=== PATIENT | male | born 1950 | race Caucasian/White ===

== ENCOUNTER → 2016-07-14 | Outpatient (CLI) | payer OTHER ==
[~2016-07-14] VITALS: Ht 182.9 cm; Wt 93.0 kg
[~2016-07-14] MED LIST: BENICAR HCT 401 EACH PO; GLUCOPHAGE1000 MG PO; GLUCOPHAGE500 MG PO; HYDROCODONE-AP1 EA11 PO; INVOKANA100 MG PO; LORAZEPAM 2MG TA2 M1 PO; OXYCONTIN30 MG PO; OXYCONTIN40 MG PO; PRAVACHOL40 MG PO; SYNTHROID125 MCG PO; VICOPROFEN 2001 EACH PO
--- NOTE | ~2016-07-14 | HPC ---
[facility] [place] [address] [place] [address] [place] [address] PAIN MANAGEMENT CONSULTATION Name: SHREE TORRES Room #: REG HALLEY Jyoti#: [id number] Admission: 07/14/16 Attend Phys: Hollis Atwood MD Discharge: Date of : 46 Report #: [id number] THIS REPORT FOR: //name// CC: Antione Atwood DATE OF SERVICE: 07/14/2016 Followup visit for chronic hip pain and management of high risk medication. The patient returns to pain clinic here for routine followup. He has been a patient of our clinic now since 1996, so it has been 20 years. We began providing with opioid analgesics to help with his intractable hip pain, which was difficult to diagnose. He signed opioid agreement with us for provision of these medications quite early. I reviewed the chart today and saw the initial consult for medication on 06/14/2000, so he has been on an opioid daily nearly 16 years. 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 He was able to manage his pain effectively with the use of medication. A diagnosis was essentially myofascial pain of chronic origin in the right hip, either a piriformis or gluteal. He has been on an opioid dose of OxyContin 40 mg b.i.d. and hydrocodone/ibuprofen 7.5/200 three times daily, nearly all of these years. Today, we reviewed the CDC guidelines and our practice efforts to taper patients down even though who have been stable over many years and even we feel they are using medication appropriately. Lowest effective dose seems to be the goal in mind for patient like. In the past, I have been reluctant to change the dose for stable patients, but with our new emphasis on trying to maintain lower doses across the practice, I am going to also ask the patient if he will see if he can reduce his longacting opioid. He was quite open to the suggestion and was willing to reduce his OxyContin dose from 40 to 30 twice a day and we will see how he does. Overall, he scores his pain with medications a 4 on a daily basis, worse with standing, walking and steps, riding a car. Pain has been constant throughout all these years, mostly in the right hip where he has localized tenderness just over the greater trochanter and posterior in the gluteal muscle group. PHYSICAL EXAMINATION: He is pleasant, alert and oriented without signs of overmedication, depression or anxiety. He has lost weight. His BMI is 27.8, 6 feet tall, 205 pounds. Moves quickly and easily from sitting to standing position, walks without antalgic features. Has tenderness in his right hip. [facility] [address] [place] [address] PAIN MANAGEMENT CONSULTATION Name: BRIANISAAC BHAGATBIB Saldaña Room #: REG Poppy Montes#: [id number] Admission: 07/14/16 Attend Phys: Hollis Atwood MD Discharge: Date of : 46 Report #: [id number] IMPRESSION: 1. Chronic right hip pain, probable myofascial. 2. Management of high risk medication. PLAN: 1. OxyContin 30 mg b.i.d. 2. Discontinue Vicoprofen. 3. Begin oxycodone/APAP 7.5/325. 4. Follow up in 3 months. By: [id number] Hollis Atwood MD /nt
[2016-07-14 14:04] VITALS: BP 111/86
== END | disposition home or self-care (01) ==
LOC: PAIN 06:53
DX: M25.551 Pain in right hip (principal); F41.9 Anxiety disorder, unspecified; F32.9 Major depressive disorder, single episode, unspecified

== ENCOUNTER → 2016-10-31 | Outpatient (CLI) | payer OTHER ==
[~2016-10-31] VITALS: Ht 185.4 cm; Wt 92.1 kg
[~2016-10-31] MED LIST changes: +CYMBALTA30 MG PO; +CYMBALTA60 MG PO; +OXYCODONE HCL E20 MG PO
[2016-10-31 11:03] VITALS: BP 132/76
== END | disposition home or self-care (01) ==
LOC: PAIN 06:42
DX: M25.551 Pain in right hip (principal); F11.20 Opioid dependence, uncomplicated

== ENCOUNTER → 2017-08-31 | Outpatient (CLI) | payer OTHER ==
[~2017-08-31] VITALS: Ht 185.4 cm; Wt 100.1 kg
[~2017-08-31] MED LIST changes: +JANUVIA100 MG PO
--- NOTE | ~2017-08-31 | HPC ---
[facility] [address] [place] [address] PAIN MANAGEMENT CONSULTATION Name: SHREE TORRES Room #: REG [facility] MHolliR.#: [id number] Admission: 08/31/17 Attend Phys: Hollis Atwood MD Discharge: Date of : 46 Report #: [id number] THIS REPORT FOR: //name// CC: Antione Atwood DATE OF SERVICE: 08/31/2017 Followup visit for chronic right hip pain. The patient returns to clinic today for renewal of medication, last seen on 03/06/2017. He has been doing well with no signs of medication side effect, misuse or abuse. He is on time for his medication. He is now living back and forth between his home in [place]. His daughter lives close by in [place] where he also is able to see his grandson! The pain still is increased when prolonged driving or walking up hills. He has localized and tender pain in the right buttock. PHYSICAL EXAMINATION: He is alert and oriented with good affect. Blood pressure is 139/83, heart rate 62. His BMI is 29.1. He looks healthy and happy. He has some pain in his right hip without radiation. Gait is normal without antalgic features. IMPRESSION: 1. Chronic intractable right hip pain. He has had a previous laminectomy. This may be radicular. It has responded well to medication over the course of many years. He has been seen in our clinic since 1998. 2. Management of high risk medications. Current morphine milligram equivalents is 75 MME. Followup visit is scheduled in our pain clinic in 3 months. By: [id number] Hollis Atwood MD /nt
[2017-08-31 13:54] VITALS: BP 139/83
== END ==
LOC: PAIN 05:52
DX: M25.551 Pain in right hip (principal); G89.29 Other chronic pain

== ENCOUNTER → 2018-03-29 | Outpatient (CLI) | payer OTHER ==
[~2018-03-29] VITALS: Ht 185.4 cm; Wt 100.2 kg
--- NOTE | ~2018-03-29 | HPC ---
[facility] [address] [place] [address] PAIN MANAGEMENT CONSULTATION Name: SHREE TORRES Room #: REG CL MAbdoulaye.#: [id number] Admission: 03/29/18 Attend Phys: Anni Servin Discharge: Date of : 46 Report #: [id number] THIS REPORT FOR: //name// CC: Anni Talbot [facility] DATE OF SERVICE: 03/29/2018 CHIEF COMPLAINT: For chronic intractable hip pain. HISTORY OF PRESENT ILLNESS: The patient returns to the pain clinic today for refill of his medications. He comes to see us every 3 months for a refill. He has been doing well on his current pain regimen, he states his pain score is 3-4 of his right hip pain. He tells me that it is worse when he is standing, walking, driving a car, walking on uneven ground, but the medication has been helpful, as well as lying down. He does have an occasional ache and dull pain that he complains of in that hip. He tells me that he still has been doing well, even since the decrease of Dr. Atwood did earlier this year of his OxyContin. He tells me that he has been traveling some, but otherwise he has been very stable in all of his medications. ALLERGIES: DEMEROL. MEDICATIONS: List of current medications, OxyContin 20 mg twice a day, hydrocodone 7.5/325 up to 2 times a day, Januvia 100 mg daily, Cymbalta 60 mg daily, Synthroid 125 mcg daily, Glucophage 1000 mg twice a day and lorazepam 2 mg 3 times a day as needed p.r.n. PATIENT'S PQRS TODAY: He has a history of osteoarthritis in his hips. He denies rheumatoid arthritis. Height is 6 feet 1 inch, weight is 221. BMI is 29.2. Vital signs 139/86, pulse is 76, respirations 14, oxygen sat is 98%. Pain score is 3-4. The patient denies dizziness. Does not need help walking or standing and has not fallen in the last 3 months. The patient denies any blood thinners or any antihypertensives. He has been on opioid therapy greater than 6 weeks; therefore, an opioid signed contract is on the chart. His opioid risk assessment tool is low and his functional assessment is 32/70. The patient denies recreational drug use. Does not smoke and does not drink alcohol. Prescription monitoring systems were checked for [place] in [place]. The patient is filling appropriate from Dr. Atwood at [facility], no aberrant refills and the patient tells me that he does safeguard his medications. PHYSICAL EXAMINATION: GENERAL: This is a very pleasant, alert, oriented gentleman who appears his stated age. He is alert and oriented x 3. His affect is appropriate. [facility] [address] [place] [address] PAIN MANAGEMENT CONSULTATION Name: SHREE TORRES Room #: REG HALLEY Montes#: [id number] Admission: 03/29/18 Attend Phys: Anni Servin Discharge: Date of : 46 Report #: [id number] HEENT: Normocephalic, atraumatic. Extraocular eye muscles are intact. Mucous membranes are moist. Hearing is adequate. NECK: No JVD or adenopathy. Good range of motion. MUSCULOSKELETAL: Lower extremity strength judged to be 5/5 in all major muscle groups. Does complain of some right hip tenderness. No antalgic features to his gait. His pain does not radiate down his leg, it stays within the hip area. IMPRESSION: 1. Chronic intractable right hip pain, post-laminectomy. 2. Management of high risk medications, followed an opioid agreement. PLAN: 1. We reviewed the patient's medications today and I have discussed his treatment plan. The patient tells me that he has been doing well on his current medications and wishes to continue at the current rate. Scripts were given for OxyContin 20 mg one p.o. b.i.d., #60 for today, 4-week and 8-week release. Second medication of [place] 7.5/325, #60 for today, 4-week and 8-week release. 2. The patient will be seen in followup in 3 months' time by myself, then he may see Dr. Hollis Atwood for an appointment. He may call sooner if he feels like he needs any injections or something else arises with his medications. The patient seen under collaboration today with Dr. Олег Kruse. <ELECTRONICALLY SIGNED> By: Anni Servin 04/02/18 1457 [id number] Anni Servin /tank
[2018-03-29 13:12] VITALS: BP 139/86
== END ==
LOC: PAIN 09:22
DX: M25.551 Pain in right hip (principal); G89.29 Other chronic pain; M19.90 Unspecified osteoarthritis, unspecified site; Z79.899 Other long term (current) drug therapy

== ENCOUNTER → 2018-11-08 | Outpatient (CLI) | payer OTHER ==
[~2018-11-08] VITALS: Ht 185.4 cm; Wt 100.0 kg
[2018-11-08 14:33] VITALS: BP 127/84
--- NOTE | 2018-11-08 14:44 | NUR ---
Pain Clinic Assessment: 1. History of Osteoarthritis: RT HIP History of Rheumatoid Arthritis: Not Applicable 2. Height: 6 ft. 1 in. 185.4 cm. Weight: 220.4 lb. oz. 99.973 kg. Patient's BMI: 29.1 3. Vital Signs: BP: 127/84 Pulse: 70 Resp: 16 Temp: 02 Sat: 96 ECG Mon: 4. Pain Intensity: 3 5. Fall Risk: Dizziness: N Needs help standing or walking: N Fallen in the last 3 months: N Fall risk comments: 6. Patient on Blood Thinner: None 7. History of Hypertension: N 8. Opioid Therapy greater than 6 weeks: Y Opiate Contract Signed: 02/05/14 9. Risk Assessment Tool Provided: Opioid Risk Tool 10. Functional Assessment Tool: 11. Recreational Drug Use: Never Drug Type: Tobacco Use: Never Smoker Tobacco Type: Amount or Packs/day: How Many Years: Alcohol Use: No Frequency: Quant:
--- NOTE | 2018-11-09 09:08 | HPC ---
[facility] [address] [place] [address] [place] [address] PAIN MANAGEMENT CONSULTATION Name: SHREE TORRES [facility] #: [facility] [id number] Admission: 11/08/18 ������������������ Attend Phys: Anni Servin Discharge: ������������������ Date of : 46 Report #: [id number] THIS REPORT FOR: //name// CC: Anni Atwood DATE OF SERVICE: 11/08/2018 CHIEF COMPLAINT: Chronic intractable hip pain. HISTORY OF PRESENT ILLNESS: This is a very pleasant 68-year-old gentleman who returns to the pain clinic today for refill of his medications that he uses to treat his ongoing right hip pain. He tells me that his pain score is 3/10 today, is worse when he is driving, walking up hills or standing. The medication is very helpful as well as lying down. He denies any problems with constipation or daytime sleepiness from this medication. He tells me he is getting ready to go to his home in [place] for several weeks and needed his refill before he travels. ALLERGIES: DEMEROL. CURRENT LIST OF MEDICATIONS: OxyContin 20 mg b.i.d., hydrocodone 7.5/325 b.i.d., Januvia, Cymbalta, Synthroid, Glucophage, and lorazepam. PQRS: 1. The patient has osteoarthritis in his right hip. Denies any rheumatoid arthritis. 2. Height is 6 feet 1 inch, weight is 220, BMI is 29. 3. Vital signs: Blood signs 127/84, pulse is 70, respirations 16, oxygen sat is 96. 4. Pain score is 3/10. 5. Denies dizziness. Does not need help walking or standing, has not fallen in the last 3 months. 6. The patient is not on any blood thinners, does not take medicine for hypertension. 7. Opioid therapy is greater than 6 weeks; therefore, an opioid signed contract is on the chart. Risk assessment is low. Functional assessment is low as well. Recreational drug use, he denies. He is not a smoker and does not drink alcohol. According to the prescription monitoring system, the patient is filling appropriately for his medications and is due for those today. PHYSICAL EXAMINATION: GENERAL: This is a very pleasant and alert and orientated 68-year-old. He appears his stated age. His affect is appropriate. He is a good historian. He places his current pain score today at 3/10. [address] [address] PAIN MANAGEMENT CONSULTATION Name: SHREE TORRES Room #: REG CLI [facility]#: [id number] Admission: 11/08/18 ������������������ Attend Phys: Anni Servin Discharge: ������������������ Date of : 46 Report #: [id number] HEENT: Normocephalic, atraumatic. Extraocular eye muscles are intact. Mucous membranes are moist. NECK: Without adenopathy or JVD. MUSCULOSKELETAL: Complains of tenderness over his right hip with no radiation. He walks with a normal gait. His lower extremity strength judged to be 5/5 in all major muscle groups and muscle tone is equal and symmetrical. IMPRESSION: 1. Chronic intractable right hip pain. 2. Post-laminectomy syndrome. 3. Management of high risk medications under terms of written opioid agreement. We reviewed the fact that opiate medications are being used to provide analgesia adequate to support activities of daily living, not attempting to achieve a specific pain score on the 0-10 Visual Analog Scale. The current opiate medications are providing sufficient analgesia to allow the patient to participate in activities of daily living. The patient is not exhibiting any aberrant behavior suggestive of drug diversion. The patient is not having any adverse reactions to medications. The patient is not suffering from daytime somnolence or mental acuity changes. The patient is managing opiate-induced constipation with appropriate [id number] agents and dietary considerations. The patient was counseled on concern for caution with operating a motor vehicle while using opiate medications. A physical exam was performed and the patient's functional status was evaluated. All patients with back pain were advised against the bed rest greater than 4 days and were advised to return to normal activities. Pain score assessment was noted and the treatment plan was reviewed with the patient. All current medications, both prescribed and OTC were reviewed and reconciled on the electronic medical record. Tobacco screening was accomplished and smoking cessation was advised when indicated. BMI was noted and diet/exercise modification was recommended for all patients following outside normal parameters. I reviewed with the patient today their responsibilities to safeguard prescription medications, reviewed their responsibility to utilize medications only as prescribed by the physician. They are to seek and receive pain medications only from 1 physician group ( [facility]). They are to use 1 pharmacy and keep the clinic informed if they change pharmacies. Their responsibilities include making followup visits in a timely fashion and to avoid abrupt discontinuation of medication usage. Their responsibilities further include bringing their medications (bottles from the pharmacy with residual pills) to the visit for possible confirmation of pill counts and the patient understands it is their responsibility to submit to random drug screens to ensure both that the medications prescribed are present, and that no other controlled substances are present. All prescriptions provided today were [facility] [address] [place] [address] PAIN MANAGEMENT CONSULTATION Name: SHREE TORRES Room #: REG HALLEY Montes#: [id number] Admission: 11/08/18 ������������������ Attend Phys: Anni Servin Discharge: ������������������ Date of : 46 Report #: [id number] generated electronically. PLAN: 1. We discussed treatment options with the patient today. The patient's pain is well controlled with his hydrocodone and OxyContin. Scripts given today for 20 mg OxyContin #60 for release today, 4 and 8 week and hydrocodone 7.5/325, #60 for 3 months as well. According to the CDC guidelines, this places the patient at 75 morphine mEq per day. 2. The patient is encouraged to safeguard his meds when he travels and keep them with him at all times. He verbalizes understanding. 3. Dr. Hollis Atwood did come and see the patient and collaborated care today. The patient will call for an appointment. ��������������������������������������������� <ELECTRONICALLY SIGNED> ���������������������������������������� By: Anni Servin ��������������������������������������������� 11/09/18 0908 [id number] Anni Servin /tank
== END ==
LOC: PAIN 13:59
DX: M25.551 Pain in right hip (principal); G89.29 Other chronic pain; M96.1 Postlaminectomy syndrome, not elsewhere classified; Z79.891 Long term (current) use of opiate analgesic

== ENCOUNTER → 2019-03-04 | Outpatient (CLI) | payer OTHER ==
[~2019-03-04] VITALS: Ht 185.4 cm; Wt 100.2 kg
[2019-03-04 14:15] VITALS: BP 155/80
--- NOTE | 2019-03-04 14:41 | NUR ---
Pain Clinic Assessment: 1. History of Osteoarthritis: RT HIP History of Rheumatoid Arthritis: Not Applicable 2. Height: 6 ft. 1 in. 185.4 cm. Weight: 221.0 lb. oz. 100.245 kg. Patient's BMI: 29.2 3. Vital Signs: BP: 155/80 Pulse: 62 Resp: 14 Temp: 02 Sat: 98 ECG Mon: 4. Pain Intensity: 3 5. Fall Risk: Dizziness: N Needs help standing or walking: N Fallen in the last 3 months: N Fall risk comments: 6. Patient on Blood Thinner: None 7. History of Hypertension: N 8. Opioid Therapy greater than 6 weeks: Y Opiate Contract Signed: 02/05/14 9. Risk Assessment Tool Provided: 4-MOD RISK 10. Functional Assessment Tool: 11. Recreational Drug Use: Never Drug Type: Tobacco Use: Never Smoker Tobacco Type: Amount or Packs/day: How Many Years: Alcohol Use: No Frequency: Quant:
--- NOTE | 2019-03-05 10:35 | HPC ---
[facility] [address] [place] [address] PAIN MANAGEMENT CONSULTATION Name: SHREE TORRES Room #: REG [facility] Jyoti#: [id number] Admission: 03/04/19 Attend Phys: Anni Servin Discharge: Date of : 46 Report #: [id number] THIS REPORT FOR: //name// CC: Anni Talbot [facility] DATE OF SERVICE: 03/04/2019 CHIEF COMPLAINT: Chronic intractable hip pain. HISTORY OF PRESENT ILLNESS: This is a very pleasant 68-year-old gentleman who returns to the pain clinic today for his ongoing right hip pain. He believes it is piriformis in nature. He is rating a pain score of 3/10 today as a dull aching pain, worse when he is very active and walking or driving his car. He feels that his medication as well as lying down are quite beneficial. He is here actually 4 months since his last appointment. He was able to make his medicines last that long, though he reports he has not been aware that it had been 4 months since his last visit. He feels that some days he must do better than others, forgetting to take his pills when he is more active and not needing them. He denies any problems with constipation or daytime sleepiness from his medications. He does safeguard those especially when he is away from home and traveling. Today, he would like refills of his OxyContin and hydrocodone. ALLERGIES: DEMEROL. CURRENT LIST OF MEDICATIONS: OxyContin 20 mg b.i.d., hydrocodone 7.5/325 b.i.d. p.r.n., Januvia 100 mg daily, Cymbalta 60 mg daily, Synthroid 125 mcg daily, Glucophage 1000 mg b.i.d., and lorazepam p.r.n. PQRS: 1. The patient has osteoarthritis in his right hip. He denies any rheumatoid arthritis. 2. Height is 6 feet 1 inch, weight is 221. BMI is 29. 3. Vital signs 155/80, pulse is 62, respirations 14, oxygen sat is 98. 4. Pain score is 3. 5. Denies dizziness, does not need help walking or standing, has not fallen in the last 3 months. 6. The patient is not on blood thinner or hypertension medicines. 7. Opioid therapy is greater than 6 weeks; therefore, an opioid signed contract is on the chart. Risk assessment tool is moderate. Functional assessment is 23/70. 8. Recreational drug use, he denies. He is not a smoker and does not drink alcohol. According to the prescription monitoring system, the patient is filling appropriately for his medications, actually filling slightly longer than 30 [place] [address] PAIN MANAGEMENT CONSULTATION Name: SHREE TORRES Room #: REG HALLEY Montes#: [id number] Admission: 03/04/19 Attend Phys: Anni Servin Discharge: Date of : 46 Report #: [id number] and in between fills, he tells me he safeguards his medications at all times. PHYSICAL EXAMINATION: GENERAL: This is a pleasant and alert 68-year-old gentleman who appears his stated age, placing his current pain score at 3/10 today. He is a good historian. HEENT: Normocephalic, atraumatic. Extraocular eye muscles are intact. NECK: Without adenopathy or JVD. MUSCULOSKELETAL: He walks with a normal gait. He has tenderness over his right hip with no radiculopathy. Strength in his lower extremities judged to be 5/5 in all major muscle groups. IMPRESSION: 1. Chronic intractable right hip pain. 2. Post-laminectomy syndrome. 3. Management of high risk medications under terms of written opioid agreement. PLAN: 1. We discussed treatment options with the patient today. The patient feels he is doing quite well with his current medication regimen, requiring some days less than the prescribed amount, doing quite well, is keeping very active and traveling, busy at home. Scripts given today for his hydrocodone 7.5/325, #60 and OxyContin 20 mg, #60. Those medicines were released today, 4-week and 8-week. MRI electronically sent to [facility]. 2. According to the prescription monitoring system, the patient's morphine milliequivalent is 75 morphine milliequivalents per day. 3. The patient will return in 3-4 months as needed for medication refills. He will continue to safeguard these medications. The patient is seen in collaboration with Dr. Hollis Atwood today. <ELECTRONICALLY SIGNED> By: Anni Servin 03/05/19 1035 [id number] Anni Servin /tank
== END ==
LOC: PAIN 07:02
DX: M25.551 Pain in right hip (principal); G89.4 Chronic pain syndrome; M96.1 Postlaminectomy syndrome, not elsewhere classified; Z79.899 Other long term (current) drug therapy; Z79.891 Long term (current) use of opiate analgesic

== ENCOUNTER → 2019-06-06 | Outpatient (CLI) | payer OTHER ==
[~2019-06-06] VITALS: Ht 185.4 cm; Wt 102.3 kg
[2019-06-06 14:14] VITALS: BP 127/88
--- NOTE | 2019-06-06 14:18 | NUR ---
Pain Clinic Assessment: 1. History of Osteoarthritis: RT HIP History of Rheumatoid Arthritis: Not Applicable 2. Height: 6 ft. 1 in. 185.4 cm. Weight: 225.6 lb. oz. 102.332 kg. Patient's BMI: 29.8 3. Vital Signs: BP: 127/88 Pulse: 75 Resp: 16 Temp: 02 Sat: 98 ECG Mon: 4. Pain Intensity: 3-4 5. Fall Risk: Dizziness: N Needs help standing or walking: N Fallen in the last 3 months: N Fall risk comments: 6. Patient on Blood Thinner: None 7. History of Hypertension: N 8. Opioid Therapy greater than 6 weeks: Y Opiate Contract Signed: 02/05/14 9. Risk Assessment Tool Provided: 4-MOD RISK 10. Functional Assessment Tool: 11. Recreational Drug Use: Never Drug Type: Tobacco Use: Never Smoker Tobacco Type: Amount or Packs/day: How Many Years: Alcohol Use: No Frequency: Quant:
--- NOTE | 2019-06-11 08:58 | HPC ---
[facility] [place] [address] PAIN MANAGEMENT CONSULTATION Name: SHREE TORRES Room #: REG [facility] M.R.#: [id number] Admission: 06/06/19 Attend Phys: Anni Servin Discharge: Date of : 46 Report #: [id number] THIS REPORT FOR: cc: Antione Gibbs MD,Antione Servin,Anni WADSWORTH ~ THIS REPORT FOR: //name// CC: Anni Gibbs DATE OF SERVICE: 06/06/2019 CHIEF COMPLAINT: Chronic intractable hip pain. 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 He reports it is a constant, aching, dull pain of 3/10 today, it is worse with prolonged standing and walking, especially up hills and driving a car. He feels the medications are very beneficial. He reports no side effects of constipation or daytime sleepiness. Today, he would like refills of those medications. He reports he recently returned from [place] for a conference and he was able to be as active as he would like with limited pain due to using his medications. ALLERGIES: DEMEROL. CURRENT LIST OF MEDICATIONS: OxyContin 20 mg b.i.d., hydrocodone 7.5/325 p.r.n., Januvia, Cymbalta, Synthroid, Glucophage, and lorazepam. PQRS: 1. He has osteoarthritis in his right hip. Denies any rheumatoid arthritis. 2. Height is 6 feet 1 inch, weight is 225. BMI is 29. 3. Vital signs 127/88, pulse is 75, respirations 16, oxygen sat is 98. 4. Pain score is 3-4. 5. Denies dizziness, does not need help walking or standing, has not fallen in the last 3 months. 6. The patient is not on any blood thinners or medicine for hypertension. Opioid therapy is greater than 6 weeks; therefore, an opioid signed contract is on the chart. Risk assessment is moderate. Functional assessment is 23/70. 7. Recreational drug use, he denies. He is not a smoker and does not drink alcohol. According to the prescription monitoring system, the patient is filling appropriately for his medication. He is due to fill those today in a timely fashion. There is a recent drug screen on the chart. [place] [address] PAIN MANAGEMENT CONSULTATION Name: SHREE TORRES Room #: REG [facility] Montes#: [id number] Admission: 06/06/19 Attend Phys: Anni Servin Discharge: Date of : 46 Report #: [id number] drug screen on him at his next visit. His morphine mEq according to the CDC guidelines are 70 per day; therefore, he is seen every 2 months. PHYSICAL EXAMINATION: GENERAL: This is alert and orientated 68-year-old gentleman who appears his stated age, placing his current pain score at 3/10 today. HEENT: Normocephalic, atraumatic. Mucous membranes are moist. NECK: He walks with a normal gait. MUSCULOSKELETAL: He has tenderness in his right hip with no radicular symptoms. His lower extremity strength judged to be 5/5 in all major muscle groups. He moves from sitting to standing easily with no difficulty. IMPRESSION: 1. Chronic intractable right hip pain. 2. Post-laminectomy syndrome. 3. Management of high risk medications under terms of written opioid agreement. We reviewed the fact that opiate medications are being used to provide analgesia adequate to support activities of daily living, not attempting to achieve a specific pain score on the 0-10 Visual Analog Scale. The current opiate medications are providing sufficient analgesia to allow the patient to participate in activities of daily living. The patient is not exhibiting any aberrant behavior suggestive of drug diversion. The patient is not having any adverse reactions to medications. The patient is not suffering from daytime somnolence or mental acuity changes. The patient is managing opiate-induced constipation with appropriate ndjo-yev-fmkglxk agents and dietary considerations. The patient was counseled on concern for caution with operating a motor vehicle while using opiate medications. PLAN: We discussed treatment options with the patient today. He is doing quite well on his current medication regimen, having sufficient analgesic response with being able to be as active as he would like with no side effects per his report. We will electronically send his OxyContin 20 mg b.i.d., #60 for today at 4-week and 8-week release as well as his hydrocodone 7.5/325 for today for an 8-week release. These will be sent electronically by Dr. Hollis Atwood who collaborated care with me today. <ELECTRONICALLY SIGNED> By: Anni Servin 06/11/19 [id number] Anni Servin /nt
== END ==
LOC: PAIN 07:52
DX: Z76.0 Encounter for issue of repeat prescription (principal); M16.11 Unilateral primary osteoarthritis, right hip; G89.4 Chronic pain syndrome; M96.1 Postlaminectomy syndrome, not elsewhere classified; Z79.891 Long term (current) use of opiate analgesic; Z79.899 Other long term (current) drug therapy

== ENCOUNTER → 2019-09-19 | Outpatient (CLI) | payer OTHER ==
[~2019-09-19] VITALS: Ht 185.4 cm; Wt 102.4 kg
--- NOTE | ~2019-09-19 | HPC ---
[facility] [address] [place] [address] PAIN MANAGEMENT CONSULTATION Name: SHREE PABLO Room #: REG [facility] M.R.#: [id number] Admission: 09/19/19 Attend Phys: Hollis Atwood MD Discharge: Date of : 46 Report #: [id number] THIS REPORT FOR: cc: Antione Gibbs MD, Bruce H. MD Morgan,Hollis Alexander MD ~ CC: Antione Atwood DATE OF SERVICE: 09/19/2019 Followup visit for management of opioid medications under terms of written opioid agreement. 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 I have provided medications for him for over 10 years. He has been on opioid medications for roughly 20 years. He was once on much higher dose and has reduced his dose and morphine milligram equivalency to around 80. He takes long-acting oxycodone 20 mg morning and evening and has hydrocodone 10/325, which he uses for breakthrough pain, both before and after particularly painful activities. We had a lengthy discussion today about ____ of opioid use for chronic intractable pain. I shared my thoughts, our process, the CDC guidelines and also showed him his [facility] prescription drug monitoring program information. It did point out the use of relative high dose of lorazepam prescribed by Dr. Gibbs. We then discussed at some length the potential risks of benzodiazepine and opioids and their interaction. As Dr. Pablo has pointed out he has taken this combination for many years without harm and as long as he safeguards his medications, takes them as he is currently using them the likelihood of harm is small due to long-term tolerance. We have talked at times about reducing his dose further and I have encouraged him to consider this. For the moment; however, his pain is well controlled. His pain scores are 3-4 and we will stick with the status quo. I did point out that changes may be coming that are outside of our control, which may be either regulatory, insurance or supply driven. He will also at some point in time need another physician to prescribe his medication due to my age and possibility of retiring from practice in the next few years. He reports he is doing well as pain medication works very effectively for him. It improves his daily pain control and function. He is able to do more with less discomfort. He has remained active with exercise, walks when he can. He safeguards his medications carefully and denies any side effects from medications or the combination of benzodiazepine and opioid. [address] [address] PAIN MANAGEMENT CONSULTATION Name: SHREE PABLO ANTIONE Room #: REG [facility].#: [id number] Admission: 09/19/19 Attend Phys: Hollis Atwood MD Discharge: Date of : 46 Report #: [id number] PQRS: Positive for osteoarthritis in the right hip. The patient's BMI is 29.8. Blood pressure 135/106, heart rate 74, respirations 18, O2 sat 99. He will follow with Dr. Gibbs. He has not fallen in the last 3 months. He is on no blood thinning medications. He is not being treated for hypertension, but should see Dr. Gibbs to follow up on his elevation of diastolic blood pressure today. Opioid agreement has been signed on several occasions, most recently about 4 or 5 years ago and we discussed the terms of that agreement. He is at moderate risk for addiction by the opioid risk tool. Functional assessment score is 31, suggesting impact on his day-to-day activities by chronic pain, but pretty good, decent management. Denies use of tobacco or alcohol. IMPRESSION: 1. Chronic intractable right hip pain, osteoarthritis. 2. Post-laminectomy syndrome. 3. Management of high risk medications under terms of an opioid agreement. Medications were renewed today electronically. His MME is around 80. We talked about carefully safeguarding medications and I will see him back in the pain clinic in 3 months. By: [id number] Hollis Atwood MD /nt
[2019-09-19 09:26] VITALS: BP 135/106
--- NOTE | 2019-09-19 09:34 | NUR ---
Pain Clinic Assessment: 1. History of Osteoarthritis: RT HIP History of Rheumatoid Arthritis: Not Applicable 2. Height: 6 ft. 1 in. 185.4 cm. Weight: 225.8 lb. oz. 102.422 kg. Patient's BMI: 29.8 3. Vital Signs: BP: 135/106 Pulse: 74 Resp: 18 Temp: 02 Sat: 99 ECG Mon: 4. Pain Intensity: 3-4 5. Fall Risk: Dizziness: N Needs help standing or walking: N Fallen in the last 3 months: N Fall risk comments: 6. Patient on Blood Thinner: None 7. History of Hypertension: N 8. Opioid Therapy greater than 6 weeks: Y Opiate Contract Signed: 02/05/14 9. Risk Assessment Tool Provided: 4-MOD RISK 10. Functional Assessment Tool: 11. Recreational Drug Use: Never Drug Type: Tobacco Use: Never Smoker Tobacco Type: Amount or Packs/day: How Many Years: Alcohol Use: No Frequency: Quant:
== END ==
LOC: PAIN 06:47
DX: M16.11 Unilateral primary osteoarthritis, right hip (principal); G89.29 Other chronic pain; M96.1 Postlaminectomy syndrome, not elsewhere classified; F11.20 Opioid dependence, uncomplicated

== ENCOUNTER → 2020-01-06 | Outpatient (CLI) | payer OTHER ==
[~2020-01-06] VITALS: Ht 185.4 cm; Wt 101.2 kg
[2020-01-06 09:28] VITALS: BP 150/88
--- NOTE | 2020-01-06 09:39 | NUR ---
Pain Clinic Assessment: 1. History of Osteoarthritis: RT HIP History of Rheumatoid Arthritis: Not Applicable 2. Height: 6 ft. 1 in. 185.4 cm. Weight: 223.0 lb. oz. 101.152 kg. Patient's BMI: 29.4 3. Vital Signs: BP: 150/88 Pulse: 71 Resp: 16 Temp: 02 Sat: 100 ECG Mon: 4. Pain Intensity: 3 5. Fall Risk: Dizziness: N Needs help standing or walking: N Fallen in the last 3 months: N Fall risk comments: 6. Patient on Blood Thinner: None 7. History of Hypertension: N 8. Opioid Therapy greater than 6 weeks: Y Opiate Contract Signed: 02/05/14 9. Risk Assessment Tool Provided: 4-MOD RISK 10. Functional Assessment Tool: 11. Recreational Drug Use: Never Drug Type: Tobacco Use: Never Smoker Tobacco Type: Amount or Packs/day: How Many Years: Alcohol Use: No Frequency: Quant:
--- NOTE | 2020-01-07 13:00 | HPC ---
[facility] [address] [place] [address] PAIN MANAGEMENT CONSULTATION Name: SHREE TORRES Room #: REG [facility] M..#: [id number] Admission: 01/06/20 Attend Phys: Anni Servin Discharge: Date of : 46 Report #: [id number] THIS REPORT FOR: cc: Antione Gibbs MD, Bruce H. MD Hocker, Amanda CNS ~ CC: Hollis Gibbs DATE OF SERVICE: 01/06/2020 CHIEF COMPLAINT: Chronic intractable hip pain. HISTORY OF PRESENT ILLNESS: This is a 69-year-old gentleman who returns to the pain clinic today for refill of his opioid medications. He feels that they are very beneficial in controlling his pain. He has been on a stable dose for many years. He does report that last week with the weather changes, he did have increased right hip pain, but it has subsided now that the weather is not as rainy. Patient states it is a dull aching, constant pain of 3/10 today. It is worse with standing, walking and steps. He feels as I can say, the medication and lying down are beneficial. The patient does report that he was very active when he was in [place] with grandchildren for several weeks. He found that during that time, he did have to rest periodically throughout the day. He believes that was from so many stairs and so much more activity than he is used to on a normal day. He denies any feelings of overmedication or constipation as a result of his medicines. ALLERGIES: DEMEROL. CURRENT LIST OF MEDICATIONS: OxyContin 20 mg b.i.d., hydrocodone 7.5/325 b.i.d., Januvia, Cymbalta, Synthroid, Glucophage, and lorazepam. PQRS: 1. He has osteoarthritic changes in his right hip. Denies any rheumatoid arthritis. 2. Height is 6 feet 1 inch, weight is 223, BMI is 29. 3. Vital signs; blood pressure 150/88, pulse is 71, respirations 16, oxygen sat is 100. 4. Pain score is 3/10. 5. Fall risk. Denies dizziness, does not need help walking or standing, has not fallen in the last 3 months. The patient is not on any blood thinners or medicine for hypertension. 6. His opioid therapy is greater than 6 weeks; therefore, an opioid signed contract is on the chart. Risk assessment is moderate. Functional assessment is 31/70. 3. Recreational drug use, he denies. He is not a smoker. Does not drink [address] [address] PAIN MANAGEMENT CONSULTATION Name: SHREE TORRES Room #: REG [facility] Jyoti#: [id number] Admission: 01/06/20 Attend Phys: Anni Servin Discharge: Date of : 46 Report #: [id number] alcohol. According to the prescription monitoring system, the patient is filling appropriately for his medication. His morphine milliequivalent according to the CDC guidelines is 75. PHYSICAL EXAMINATION: GENERAL: This is alert and orientated 69-year-old who appears his stated age, placing his current pain score at 3/10 today. HEENT: Normocephalic, atraumatic. Extraocular eye muscles are intact. He is wearing a mask. MUSCULOSKELETAL: He has pain in his right hip that is tender with no radicular symptoms. His lower extremity strength judged to be 5/5 in all major muscle groups. He does move from sitting to standing without any difficulty and has a slightly mildly antalgic gait. IMPRESSION: 1. Chronic intractable right hip pain. 2. Post-laminectomy syndrome. 3. Management of high risk medications under terms of written opioid agreement. We reviewed the fact that opiate medications are being used to provide analgesia adequate to support activities of daily living, not attempting to achieve a specific pain score on the 0-10 Visual Analog Scale. The current opiate medications are providing sufficient analgesia to allow the patient to participate in activities of daily living. The patient is not exhibiting any aberrant behavior suggestive of drug diversion. The patient is not having any adverse reactions to medications. The patient is not suffering from daytime somnolence or mental acuity changes. The patient is managing opiate-induced constipation with appropriate bxbd-hlh-itcehnf agents and dietary considerations. The patient was counseled on concern for caution with operating a motor vehicle while using opiate medications. PLAN: 1. We discussed treatment options with the patient today. The patient finds his medication very beneficial in controlling his pain. We will have Dr. Hollis Atwood send his medications electronically to the pharmacy for OxyContin 20 mg b.i.d., #60 as well as hydrocodone 7.5. 2. The patient denies any problems with constipation as a result of his medications. 3. The patient is seen today in collaboration with Dr. Hollis Atwood. <ELECTRONICALLY SIGNED> By: Anni Servin 01/07/20 1300 [id number] Anni Servin /nt
== END ==
LOC: PAIN 06:55
PROVIDERS: ATTEND Clinical Nurse Specialist Adult Health
DX: M25.551 Pain in right hip (principal); G89.29 Other chronic pain; F11.20 Opioid dependence, uncomplicated; M96.1 Postlaminectomy syndrome, not elsewhere classified; Z88.8 Allergy status to other drugs, medicaments and biological substances; Z79.899 Other long term (current) drug therapy

== ENCOUNTER → 2020-04-02 | Outpatient (CLI) | payer OTHER ==
[~2020-04-02] VITALS: Ht 182.9 cm; Wt 105.1 kg
[2020-04-02 13:07] VITALS: BP 139/93
--- NOTE | 2020-04-02 13:20 | NUR ---
Pain Clinic Assessment: 1. History of Osteoarthritis: RT HIP History of Rheumatoid Arthritis: Not Applicable 2. Height: 6 ft. 0 in. 182.9 cm. Weight: 231.8 lb. oz. 105.144 kg. Patient's BMI: 31.4 3. Vital Signs: BP: 139/93 Pulse: 87 Resp: 16 Temp: 02 Sat: 100 ECG Mon: 4. Pain Intensity: 3 5. Fall Risk: Dizziness: N Needs help standing or walking: N Fallen in the last 3 months: N Fall risk comments: 6. Patient on Blood Thinner: None 7. History of Hypertension: N 8. Opioid Therapy greater than 6 weeks: Y Opiate Contract Signed: 02/05/14 9. Risk Assessment Tool Provided: 4-MOD RISK 10. Functional Assessment Tool: 11. Recreational Drug Use: Never Drug Type: Tobacco Use: Never Smoker Tobacco Type: Amount or Packs/day: How Many Years: Alcohol Use: No Frequency: Quant:
--- NOTE | 2020-04-03 10:36 | HPC ---
[facility] [address] [place] [address] PAIN MANAGEMENT CONSULTATION Name: SHREE TORRES Room #: REG [facility].#: [id number] Admission: 04/02/20 Attend Phys: Anni Servin Discharge: Date of : 46 Report #: [id number] THIS REPORT FOR: cc: Antione Gibbs MD, Bruce H. MD Hocker,Anni WADSWORTH ~ DATE OF SERVICE: 04/02/2020 CHIEF COMPLAINT: Chronic intractable hip pain. HISTORY OF PRESENT ILLNESS: This is a very pleasant 69-year-old gentleman who returns for medication renewal today in the pain clinic. He feels that his pain medication is beneficial in controlling his ongoing hip pain. Today, he is reporting this pain score of 3/10, stating it is a constant, aching, dull pain that is exacerbated by standing, walking or driving a car. He believes the medication as well as lying down have been beneficial. He tries to stay as active as possible and believe this is helpful as well. He denies constipation or daytime somnolence as a result of any of his medications. ALLERGIES: DEMEROL. CURRENT LIST OF MEDICATIONS: OxyContin 20 mg b.i.d., hydrocodone 7.5/325 b.i.d., Januvia, Cymbalta, Synthroid, Glucophage, and lorazepam. PQRS: 1. He has osteoarthritis in his hip. Denies any rheumatoid arthritis. 2. Height is 6 feet, weight is 231, BMI is 31. 3. Vital signs 139/93, pulse is 87, respirations 16, and oxygen sat is 100%. 4. Pain score is 3/10. 5. Denies dizziness, does not need help walking or standing, has not fallen in the last 3 months. 6. The patient is not on any blood thinners or medicines for hypertension. 7. Opioid signed contract is on the chart. Risk assessment is low. Functional assessment is . 8. Recreational drug use, he denies. He is not a smoker and does not drink alcohol. According to the prescription monitoring system, the patient is filling appropriately in a timely fashion. His morphine mEq is 70 according to the PDMP. PHYSICAL EXAMINATION: GENERAL: This is alert and orientated 69-year-old gentleman who appears his stated age, placing his current pain score at 3/10 today. HEENT: Normocephalic, atraumatic. Extraocular eye muscles are intact. Mucous membranes are moist. He is wearing a mask. [address] [address] PAIN MANAGEMENT CONSULTATION Name: BRIANSHREE ANTIONE Room #: REG [facility] Jyoti#: [id number] Admission: 04/02/20 Attend Phys: Anni Servin Discharge: Date of : 46 Report #: [id number] MUSCULOSKELETAL: Tenderness in his right hip with no radicular symptoms. Pain is increased with ambulation and he does have a mildly antalgic gait. His lower extremity strength is symmetrical at 5/5. IMPRESSION: 1. Chronic intractable right hip pain. 2. Post-laminectomy syndrome. 3. Management of high risk medications under terms of written agreement. We reviewed the fact that opiate medications are being used to provide analgesia adequate to support activities of daily living, not attempting to achieve a specific pain score on the 0-10 Visual Analog Scale. The current opiate medications are providing sufficient analgesia to allow the patient to participate in activities of daily living. The patient is not exhibiting any aberrant behavior suggestive of drug diversion. The patient is not having any adverse reactions to medications. The patient is not suffering from daytime somnolence or mental acuity changes. The patient is managing opiate-induced constipation with appropriate xdji-caq-oxfcltl agents and dietary considerations. The patient was counseled on concern for caution with operating a motor vehicle while using opiate medications. A physical exam was performed and the patient's functional status was evaluated. All patients with back pain were advised against the bed rest greater than 4 days and were advised to return to normal activities. Pain score assessment was noted and the treatment plan was reviewed with the patient. All current medications, both prescribed and OTC were reviewed and reconciled on the electronic medical record. Tobacco screening was accomplished and smoking cessation was advised when indicated. BMI was noted and diet/exercise modification was recommended for all patients following outside normal parameters. I reviewed with the patient today their responsibilities to safeguard prescription medications, reviewed their responsibility to utilize medications only as prescribed by the physician. They are to seek and receive pain medications only from 1 physician group ([facility]). They are to use 1 pharmacy and keep the clinic informed if they change pharmacies. Their responsibilities include making followup visits in a timely fashion and to avoid abrupt discontinuation of medication usage. Their responsibilities further include bringing their medications (bottles from the pharmacy with residual pills) to the visit for possible confirmation of pill counts and the patient understands it is their responsibility to submit to random drug screens to ensure both that the medications prescribed are present, and that no other controlled substances are present. All prescriptions provided today were generated electronically. PLAN: [address] [address] PAIN MANAGEMENT CONSULTATION Name: SHREE TORRES Room #: REG [facility] Montes#: [id number] Admission: 04/02/20 Attend Phys: Anni Servin Discharge: Date of : 46 Report #: [id number] 1. We discussed treatment options with the patient today. 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 We will have Dr. Олег Kruse send his OxyContin 20 mg tablets, #60 for today, 4-week and 8-week release as well as his hydrocodone 7.5/325, #60 for 3 months as well. 2. The patient is seen today in collaboration with Dr. Kruse who is covering for Dr. Hollis Atwood. <ELECTRONICALLY SIGNED> By: Anni Servin 04/03/20 1036 [id number] Anni Servin /nt
== END ==
LOC: PAIN 06:56
PROVIDERS: ATTEND Clinical Nurse Specialist Adult Health
DX: M25.551 Pain in right hip (principal); M96.1 Postlaminectomy syndrome, not elsewhere classified; G89.4 Chronic pain syndrome; Z79.891 Long term (current) use of opiate analgesic

== ENCOUNTER → 2020-08-04 | Outpatient (CLI) | payer OTHER ==
[~2020-08-04] VITALS: Ht 182.9 cm; Wt 104.1 kg
[~2020-08-04] MED LIST changes: +ELIQUIS5 MG PO; +LISINOPRIL5 MG PO
[2020-08-04 09:04] VITALS: BP 125/67
--- NOTE | 2020-08-04 09:16 | NUR ---
Pain Clinic Assessment: 1. History of Osteoarthritis: RT HIP History of Rheumatoid Arthritis: Not Applicable 2. Height: 6 ft. 0 in. 182.9 cm. Weight: 229.4 lb. oz. 104.055 kg. Patient's BMI: 31.1 3. Vital Signs: BP: 125/67 Pulse: 83 Resp: 16 Temp: 02 Sat: 98 ECG Mon: 4. Pain Intensity: 3 5. Fall Risk: Dizziness: N Needs help standing or walking: N Fallen in the last 3 months: N Fall risk comments: 6. Patient on Blood Thinner: None 7. History of Hypertension: N 8. Opioid Therapy greater than 6 weeks: Y Opiate Contract Signed: 02/05/14 9. Risk Assessment Tool Provided: 4-MOD RISK 10. Functional Assessment Tool: 11. Recreational Drug Use: Never Drug Type: Tobacco Use: Never Smoker Tobacco Type: Amount or Packs/day: How Many Years: Alcohol Use: No Frequency: Quant:
--- NOTE | 2020-08-05 08:17 | HPC ---
[facility] [address] [place] [address] PAIN MANAGEMENT CONSULTATION Name: SHREE TORRES Room #: REG [facility] M..#: [id number] Admission: 08/04/20 Attend Phys: Anni Servin Discharge: Date of : 46 Report #: [id number] THIS REPORT FOR: cc: Antione Gibbs MD, Bruce H. MD Hocker, Amanda CNS ~ DATE OF SERVICE: 08/04/2020 CHIEF COMPLAINT: Chronic intractable hip pain. HISTORY OF PRESENT ILLNESS: This is a very pleasant 69-year-old gentleman who returns to the pain clinic today for renewal of his opioid medications. He continues to have ongoing right hip pain that is problematic, especially when he is very active with walking doing steps or prolonged driving. Weather changes also affect his hip pain. Today, he describes his pain as an aching, dull sensation, rating it a 3/10. He reports that the medication are very beneficial as well as lying down. He has not seen us since last March. He has spent some time at his home in [place]. While he is there, the weather makes his hip less painful and he is distracted more being active with activities and at times, he is not needing as much pain medicine when he is in [place]. While he is back in [place], his pain does increase and currently he has been taking 2 OxyContin a day and his breakthrough pain medicine as needed. He denies any daytime somnolence or constipation issues as a result of his medications. ALLERGIES: DEMEROL. CURRENT LIST OF MEDICATIONS: OxyContin 20 mg b.i.d., hydrocodone 7.5/325 p.r.n., lisinopril, Eliquis, Januvia, Synthroid, Glucophage, and lorazepam p.r.n. PQRS: 1. He has osteoarthritic changes in his hip. Denies any rheumatoid arthritis. 2. Height is 6 feet, weight is 229, BMI is 31. 3. Vital signs 125/67, pulse is 83, respirations 16, oxygen sat is 98%. 4. Pain score is 3/10. 5. Denies dizziness, does not need help walking or standing, has not fallen in the last 3 months. 6. The patient is on Eliquis as well as medications for hypertension. 7. Opioid therapy is greater than 6 weeks; therefore, an opioid signed contract is on the chart. Risk assessment is moderate. Functional assessment is 70. 8. Recreational drug use, he denies. He is not a smoker and does not drink alcohol. According to the prescription monitoring system, the patient is filling appropriate or slightly longer between intervals of fills. His morphine [address] [address] PAIN MANAGEMENT CONSULTATION Name: SHREE TORRES Room #: REG CL Jyoti#: [id number] Admission: 08/04/20 Attend Phys: Anni Servin Discharge: Date of : 46 Report #: [id number] milliequivalent according to the CDC guidelines is 75 MMEs. There is opioid agreement on the chart as well. PHYSICAL EXAMINATION: GENERAL: This is alert and orientated, very pleasant 69-year-old gentleman who appears his stated age, rating his pain score today at 3/10. He is a good historian. HEENT: Normocephalic, atraumatic. Extraocular eye muscles are intact. Mucous membranes are moist. He is wearing a mask. MUSCULOSKELETAL: He has tenderness in his right hip that radiates slightly into his thigh. He has a mildly antalgic gait. He moves easily from the seated to standing position without difficulty. His lower extremity strength is symmetrical at 5/5. IMPRESSION: 1. Chronic intractable right hip pain. 2. Post-laminectomy syndrome. 3. Management of high risk medications under terms of written opioid agreement. We reviewed the fact that opiate medications are being used to provide analgesia adequate to support activities of daily living, not attempting to achieve a specific pain score on the 0-10 Visual Analog Scale. The current opiate medications are providing sufficient analgesia to allow the patient to participate in activities of daily living. The patient is not exhibiting any aberrant behavior suggestive of drug diversion. The patient is not having any adverse reactions to medications. The patient is not suffering from daytime somnolence or mental acuity changes. The patient is managing opiate-induced constipation with appropriate [id number] agents and dietary considerations. The patient was counseled on concern for caution with operating a motor vehicle while using opiate medications. PLAN: 1. We discussed treatment options with the patient today. The patient finds his OxyContin and hydrocodone very beneficial in decreasing his pain. At times, he is able to get by with less opioid medications when he is distracted; therefore, it has been slightly longer than 3 months since his last fill. Today, Dr. Chu Vargas, who is covering for Dr. Atwood send his medications electronically for OxyContin 20 mg, #60 for 3 months as well as his hydrocodone 7.5/325, #60. 2. Since our last visit with the patient, he has undergone a cardiac ablation for atrial flutter that was diagnosed in April. He now is on Xarelto. I reminded the patient not to take any oral anti-inflammatory medications. If he finds that he needs some type of anti-inflammatory medications, I encouraged him to use Voltaren gel on his hip and no taking of ibuprofen or Aleve products. [facility] [address] [place] [address] PAIN MANAGEMENT CONSULTATION Name: MACO TORRESEIBIB SHAFFER Room #: REG CLPoppy Hudson.#: [id number] Admission: 08/04/20 Attend Phys: Anni Servin Discharge: Date of : 46 Report #: [id number] Time spent with the patient in consultation, reviewing recent studies, clinical notes and physician reports, physical examination and correlation of findings of medical documentation to determine treatment, 15 minutes. Time spent preparing for appointment reviewing prescription monitoring system, reviewing previous records and proposed treatment options and reviewing current medications, 5 minutes. Time spent preparing and sending electronic prescriptions with collaborating physician, Dr. Chu Vargas, who is covering for Dr. Hollis Atwood and documentation of visit and plan of treatment, 4 minutes. Total time spent 24 minutes. <ELECTRONICALLY SIGNED> By: Anni Servin 08/05/20 0817 [id number] Anni Servin /tank
== END ==
LOC: PAIN 06:54
PROVIDERS: ATTEND Clinical Nurse Specialist Adult Health
DX: M25.551 Pain in right hip (principal); G89.29 Other chronic pain; F11.20 Opioid dependence, uncomplicated; M96.1 Postlaminectomy syndrome, not elsewhere classified

== ENCOUNTER → 2020-11-12 | Outpatient (CLI) | payer OTHER ==
[~2020-11-12] VITALS: Ht 182.9 cm; Wt 99.8 kg
[2020-11-12 12:47] VITALS: BP 134/72
--- NOTE | 2020-11-12 12:55 | NUR ---
Pain Clinic Assessment: 1. History of Osteoarthritis: RT HIP History of Rheumatoid Arthritis: Not Applicable 2. Height: 6 ft. 0 in. 182.9 cm. Weight: 220.0 lb. oz. 99.792 kg. Patient's BMI: 29.8 3. Vital Signs: BP: 134/72 Pulse: 65 Resp: 16 Temp: 02 Sat: 97 ECG Mon: 4. Pain Intensity: 3 5. Fall Risk: Dizziness: N Needs help standing or walking: N Fallen in the last 3 months: N Fall risk comments: 6. Patient on Blood Thinner: None 7. History of Hypertension: N 8. Opioid Therapy greater than 6 weeks: Y Opiate Contract Signed: 02/05/14 9. Risk Assessment Tool Provided: 4-MOD RISK 10. Functional Assessment Tool: 11. Recreational Drug Use: Never Drug Type: Tobacco Use: Never Smoker Tobacco Type: Amount or Packs/day: How Many Years: Alcohol Use: No Frequency: Quant:
== END ==
LOC: PAIN 10:44
PROVIDERS: ATTEND Anesthesiology Pain Medicine
DX: Z76.0 Encounter for issue of repeat prescription (principal); G89.4 Chronic pain syndrome; M96.1 Postlaminectomy syndrome, not elsewhere classified; Z79.899 Other long term (current) drug therapy; Z79.891 Long term (current) use of opiate analgesic

== ENCOUNTER → 2021-03-25 | Outpatient (CLI) | payer OTHER ==
[~2021-03-25] VITALS: Ht 185.4 cm; Wt 101.6 kg
[2021-03-25 13:52] VITALS: BP 124/73
--- NOTE | 2021-03-25 13:57 | NUR ---
Pain Clinic Assessment: 1. History of Osteoarthritis: RT HIP History of Rheumatoid Arthritis: Not Applicable 2. Height: 6 ft. 1 in. 185.4 cm. Weight: 224.0 lb. oz. 101.606 kg. Patient's BMI: 29.6 3. Vital Signs: BP: 124/73 Pulse: 62 Resp: 16 Temp: 02 Sat: 98 ECG Mon: 4. Pain Intensity: 4 5. Fall Risk: Dizziness: N Needs help standing or walking: N Fallen in the last 3 months: N Fall risk comments: 6. Patient on Blood Thinner: None 7. History of Hypertension: N 8. Opioid Therapy greater than 6 weeks: Y Opiate Contract Signed: 02/05/14 9. Risk Assessment Tool Provided: 4-MOD RISK 10. Functional Assessment Tool: 11. Recreational Drug Use: Never Drug Type: Tobacco Use: Never Smoker Tobacco Type: Amount or Packs/day: How Many Years: Alcohol Use: No Frequency: Quant:
== END ==
LOC: PAIN 11:07
PROVIDERS: ATTEND Clinical Nurse Specialist Adult Health
DX: G89.29 Other chronic pain (principal); M25.551 Pain in right hip; M96.1 Postlaminectomy syndrome, not elsewhere classified; Z88.8 Allergy status to other drugs, medicaments and biological substances; Z79.899 Other long term (current) drug therapy; Z79.84 Long term (current) use of oral hypoglycemic drugs